=== PATIENT | male | born 1960 | race Caucasian/White ===

== ENCOUNTER 2023-08-01 15:18 | Emergency (ER) | payer OTHER, BC ==
[2023-08-01] MEDS: Albuterol 0.083% 2.5 MG/3 ML Neb Soln NEB ONE (16:14)
== END 2023-08-01 18:24 | disposition home or self-care (01) ==
LOC: VM.ED 15:18 → EDBD 15:30 → VM.ED 18:24
DX: H10.213 Acute toxic conjunctivitis, bilateral (principal); R07.89 Other chest pain; Z79.82 Long term (current) use of aspirin
CPT/HCPCS: 71045; 93005; 94640; 99285; J7613-GY